=== PATIENT | male | born 1970 | race Asian ===

== ENCOUNTER 2018-05-01 12:46 | Emergency (ER) | payer OTHER ==
[~2018-05-01] VITALS: Ht 170.2 cm; Wt 63.5 kg
[2018-05-01 13:15] VITALS: Ht 170.2 cm; Wt 63.5 kg
[2018-05-01 14:50] VITALS: BP 136/84
== END 2018-05-01 15:01 | disposition home or self-care (01) ==
LOC: ED 12:46
DX: S39.011A Strain of muscle, fascia and tendon of abdomen, initial encounter (principal); E11.9 Type 2 diabetes mellitus without complications; Z88.8 Allergy status to other drugs, medicaments and biological substances; X50.9XXA Other and unspecified overexertion or strenuous movements or postures, initial encounter; Y93.89 Activity, other specified; Y92.89 Other specified places as the place of occurrence of the external cause; Y99.8 Other external cause status